=== PATIENT | female | born 1965 | race Hispanic/Latino ===

== ENCOUNTER 2020-02-01 10:41 | Emergency (ER) | payer SELFPAY ==
[2020-02-01 11:28] LABS: #Eosinphils 0.2 thou/uL (0.0-0.7); #Lymphocytes 2.5 thou/uL (1.20-3.40); #Neutrophils 9.5 thou/uL (1.40-6.50); %Basophils 0.3 % (0.0-1.0); %Eosinophils 1.6 % (0.0-10.0); %Lymphocytes 19.1 % (21.0-51.0); %Monocytes 7.7 % (0.0-10.0); %Neutrophils 71.3 % (42.0-75.0); Hemoglobin 14.6 g/dL (12.0-16.0); Mean Corpuscular HGB CONC 32.7 g/dL (32.0-36.0); Mean Corpuscular Hemoglobin 31.8 pg (27.0-31.0); Mean Corpuscular Volume 97.1 fL (78.0-98.0); Mean Platelet Volume 6.7 fL (7.4-10.4); Platelet Count 357 thou/uL (130-400); RBC Distribution Width 12.3 % (11.5-14.5); White Blood Cell (WBC) Count 13.3 thou/uL (4.8-10.8)
[2020-02-01 11:37] LABS: Bacteria/HPF None Seen HPF (None Seen); Bilirubin Negative (Negative); Blood, Urine 2+ (Negative); Clarity Clear (Clear); Glucose, Urine (Dipstick) Normal (Negative); Leukocyte 25 Leu/uL (Negative); Mucous/LPF 2+ LPF (<2+); Nitrite Negative (Negative); Protein, Urine (Dipstick) 50 mg/dL (Neg-Trace); Urobilinogen 3 mg/dL (Less than 2)
[2020-02-01 11:47] LABS: ALT (SGPT) 15 U/L (8-55); AST (SGOT) 21 U/L (5-34); Albumin 3.9 g/dL (3.5-5.0); Alkaline Phosphatase 107 U/L (40-110); Anion Gap 15 mmol/L (10-20); BUN (Urea Nitrogen) 9 mg/dL (9.8-20.1); Bilirubin, Total 0.5 mg/dL (0.2-1.2); Calc. Creatinine Clearance 0 mL/min (70-130); Calcium 9.2 mg/dL (7.8-10.44); Carbon Dioxide 22 mmol/L (22-29); Chloride 105 mmol/L (98-107); Estimated GFR-MDRD 84; Globulin 3.6 g/dL (2.4-3.5); Glucose 106 mg/dL (70-105); Lipase 15 U/L (8-78); Potassium 3.6 mmol/L (3.5-5.1); Protein, Total 7.5 g/dL (6.0-8.3); Sodium 138 mmol/L (136-145)
[2020-02-01] MEDS ORDERED: Morphine 4 MG/ML VIAL ONE (12:04)
[2020-02-01] MEDS ORDERED: Ondansetron PF 4 MG/2 ML Vial ONE (12:05)
--- NOTE | 2020-02-01 12:24 | CT ---
CT Abdomen Pelvis W Con HISTORY: Left lower quadrant pain, right lower quadrant pain. Diarrhea since yesterday. Hemorrhoids o f bleeding. COMPARISON: CT stone protocol of 10/16/2012. FINDINGS: The lung bases are clear. The patient is post cholecystectomy. A hyperenhancing focal 13 mm lesion is seen in the right lobe of the liver likely flash filling hemangioma. The previous exam demonstrated a low-density lesion on the noncontrasted study which appears stable in size. The spleen, pancreas, adrenal glands and left kidney are normal. There is a scar in the right kidney. No free air, or lymphadenopathy is seen in the abdomen or pelvis. There is a small left paraumbilical hernia containing fat. Vascular calcifications are present without evidence of aneurysmal dilatation of the abdominal aorta. There is minimal anterolisthesis of L4 over L5. There are mild deg enerative changes in the spine. The small bowel loops are not abnormally dilated. There is colonic diverticulosis. There is thickenin g of the sigmoid colon with pericolonic inflammatory changes. Uterine fibroid is present. There is a small amount of free fluid in the pelvis. No evidence of a loculated fluid collection is seen to caballero ggest abscess formation. IMPRESSION: Sigmoid diverticulitis.
[2020-02-01] MEDS ORDERED: Iopamidol-370 76% 500 ML 1 ML ONE (16:30)
== END 2020-02-01 13:26 | disposition home or self-care (01) ==
LOC: ERS 10:41
DX: K57.32 Diverticulitis of large intestine without perforation or abscess without bleeding (principal)
CPT/HCPCS: 74177; 80053; 81003; 81015; 83690; 85025; 93005; 94760; 96361; 96374; 96375; J2270; J2405; Q9967

== ENCOUNTER 2024-09-15 20:54 | Emergency (ER) | payer SELFPAY ==
[2024-09-15] MEDS ORDERED: Ketorolac Tromethamine 30 MG (1 mL) VIAL ONE (21:13)
[2024-09-15] MEDS ORDERED: Morphine 4 MG/ML VIAL ONE (21:13)
== END 2024-09-15 22:39 | disposition home or self-care (01) ==
LOC: ERS 20:54
DX: R07.89 Other chest pain (principal); Z55.6 Problems related to health literacy; W10.9XXA Fall (on) (from) unspecified stairs and steps, initial encounter; Y92.009 Unspecified place in unspecified non-institutional (private) residence as the place of occurrence of the external cause
CPT/HCPCS: 71045; 93005; 96374; 96375; J1885; J2270